=== PATIENT | female | born 2000 | race Two or more races ===

== ENCOUNTER 2022-09-12 14:54 | Emergency (ER) | payer BC, OTHER ==
[~2022-09-12] VITALS: Ht 165.1 cm; Wt 67.2 kg
[2022-09-12 16:10] VITALS: BP 130/62
[2022-09-12] MEDS ORDERED: KETOROLAC TROMETH 60MG/2ML VIAL IM ONE (16:15)
[2022-09-12] MEDS ORDERED: IBUP600T27 PO (17:40)
== END 2022-09-12 17:53 | disposition home or self-care (01) ==
LOC: ER 14:54
DX: S16.1XXA Strain of muscle, fascia and tendon at neck level, initial encounter (principal); V43.52XA Car driver injured in collision with other type car in traffic accident, initial encounter; Y93.89 Activity, other specified; Y92.410 Unspecified street and highway as the place of occurrence of the external cause; Y99.8 Other external cause status
CPT/HCPCS: 72040; 96372; 99283; J1885